=== PATIENT | female | born 1995 | race Caucasian/White ===

== ENCOUNTER 2018-03-02 10:47 | Emergency (ER) | payer OTHER ==
[2018-03-02] MEDS ORDERED: NS 1,000 ML IV ONE (11:25)
--- NOTE | 2018-03-02 11:27 | EDPHY ---
H & P Stated Complaint: Nausea, vomiting, sore throat, general fatigue for days. Time Seen by Provider: 03/02/18 11:11 HPI/ROS: CHIEF COMPLAINT: Nausea, vomiting, headache, myalgias and fatigue HISTORY OF PRESENT ILLNESS: The patient has had a newly one-week history of nausea, vomiting, headache, myalgias and fatigue. She also is complaining of a sore throat. She was diagnosed with possible strep pharyngitis on Monday of this week and has been on amoxicillin. Since starting the antibiotic she is developed symptoms of dyspepsia, increased abdominal pain and bloating and vomiting. The patient denies any productive cough. She continues to have a mild frontal headache. She denies any acute numbness or weakness. The patient is currently being evaluated for vague symptoms of orthostasis. She has been evaluated by Neurology and Cardiology without an obvious diagnosis to date. REVIEW OF SYSTEMS: A comprehensive 10 point review of systems is otherwise negative aside from elements mentioned in the history of present illness. - Personal History LMP (Females 10-55): 8-14 Days Ago Current Tetanus Diphtheria and Acellular Pertussis (TDAP): Yes - Medical/Surgical History Hx Asthma: No Hx Chronic Respiratory Disease: Yes Hx Diabetes: No Hx Cardiac Disease: No Hx Renal Disease: No Hx Cirrhosis: No Hx Alcoholism: No Hx HIV/AIDS: No Hx Splenectomy or Spleen Trauma: No Other PMH: Bronchitis. - Social History Smoking Status: Never smoked Constitutional: Initial Vital Signs Temperature (C) 36.5 C 03/02/18 10:48 Heart Rate 113 H 03/02/18 10:48 Respiratory Rate 18 03/02/18 10:48 Blood Pressure 136/76 H 03/02/18 10:48 O2 Sat (%) 96 03/02/18 10:48 O2 Delivery Mode Room Air Allergies/Adverse Reactions: amoxicillin Allergy (Verified 03/02/18 10:52) Home Medications: Medication Instructions Recorded Azithromycin 03/02/18 Ondansetron Odt [Zofran Odt] 4 mg PO Q4PRN PRN #20 tab 03/02/18 Medical Decision Making ED Course/Re-evaluation: The patient presents to the ED with fever, fatigue, malaise, sore throat lymphadenopathy. The patient is nontoxic and well-appearing. She has no obvious splenomegaly noted on exam. Workup in the emergency department was revealing for evidence of mononucleosis and a mild transaminitis. The patient was treated with IV fluids, Zofran and anti-inflammatories. At this point I do feel the patient can withhold her antibiotics as I do not feel that this is strep throat. The patient has been cautioned not to participate in any dangerous activity given her risk of splenic injury. The patient will be given a prescription for Zofran. She is advised to have her liver function rechecked in approximately a week. The patient is instructed to return to the ED for markedly worsening symptoms, intractable vomiting, fever, pain or acute abdominal pain. Differential Diagnosis: Differential diagnosis considered includes viral syndrome, dehydration, metabolic abnormality - Data Points Laboratory Results: Laboratory Results 03/02/18 11:38 03/02/18 11:38 03/02/18 03/02/18 03/02/18 11:38 11:38 11:38 WBC 10.85 10^3/uL H 10^3/uL (3.80-9.50) RBC 5.01 10^6/uL 10^6/uL (4.18-5.33) Hgb 14.6 g/dL g/dL (12.6-16.3) Hct 41.6 % % (38.0-47.0) MCV 83.0 fL fL (81.5-99.8) MCH 29.1 pg pg (27.9-34.1) MCHC 35.1 g/dL g/dL (32.4-36.7) RDW 12.7 % % (11.5-15.2) Plt Count 145 10^3/uL L 10^3/uL (150-400) MPV 9.2 fL fL (8.7-11.7) Neut % (Auto) Not Reported Lymph % (Auto) Not Reported Kimble % (Auto) Not Reported Eos % (Auto) Not Reported Baso % (Auto) Not Reported Nucleat RBC Rel Count Not Reported Absolute Neuts (auto) Not Reported Absolute Lymphs (auto) Not Reported Absolute Monos (auto) Not Reported Absolute Eos (auto) Not Reported Absolute Basos (auto) Not Reported Absolute Nucleated RBC Not Reported Immature Gran % Not Reported Seg Neutrophils % 29.3 % % Band Neutrophils % 1.0 % % Lymphocytes % 58.6 % % Monocytes % 8.1 % % Eosinophils % 0.0 % % Basophils % 2.0 % % Metamyelocytes % 0.0 % % Myelocytes % 1.0 % % Promyelocytes % 0.0 % % Blast Cells % 0.0 % % Immature Gran # Not Reported Absolute Seg Neuts 3.18 10^3/uL 10^3/uL (1.70-6.50) Absolute Band Neuts 0.11 10^3/uL 10^3/uL (0.00-0.70) Absolute Lymphocytes 6.36 10^3/uL H 10^3/uL (1.00-3.00) Absolute Monocytes 0.88 10^3/uL H 10^3/uL (0.30-0.80) Absolute Eosinophils 0.00 10^3/uL L 10^3/uL (0.03-0.40) Absolute Basophils 0.22 10^3/uL H 10^3/uL (0.02-0.10) Absolute Metamyelocyte 0.00 10^3/mL 10^3/mL (0.00-0.00) Absolute Myelocytes 0.11 10^3/mL H 10^3/mL (0.00-0.00) Absolute Promyelocytes 0.00 10^3/uL 10^3/uL (0.00-0.00) Absolute Plasma Cells 0.00 10^3/uL 10^3/uL (0.00-0.00) Nucleated RBCs 1.0 /100 WBC H /100 WBC (0-0) Atypical Lymphocytes 3+ H Absolute Blast Cells 0.00 10^3/uL 10^3/uL (0.00-0.00) Plasma Cells % 0.0 % % Platelet Estimate DECREASED L (ADEQ) Smear Review By Pending Sodium 136 mEq/L mEq/L (135-145) Potassium 3.6 mEq/L mEq/L (3.3-5.0) Chloride 100 mEq/L mEq/L (97-110) Carbon Dioxide 26 mEq/l mEq/l (22-31) Anion Gap 10 mEq/L mEq/L (6-14) BUN 7 mg/dL mg/dL (7-23) Creatinine 0.7 mg/dL mg/dL (0.6-1.0) Estimated GFR > 60 Glucose 104 mg/dL H mg/dL (70-100) Calcium 9.5 mg/dL mg/dL (8.5-10.4) Total Bilirubin 2.6 mg/dL H mg/dL (0.1-1.4) Conjugated Bilirubin 2.0 mg/dL H mg/dL (0.0-0.5) Unconjugated Bilirubin 0.6 mg/dL mg/dL (0.0-1.1) AST 356 IU/L H IU/L (14-46) ALT 335 IU/L H IU/L (9-52) Alkaline Phosphatase 223 IU/L H IU/L (38-126) Total Protein 8.1 g/dL g/dL (6.3-8.2) Albumin 4.2 g/dL g/dL (3.5-5.0) Lipase 130 IU/L IU/L (23-300) Beta HCG, Qual NEGATIVE Monoscreen POSITIVE H (NEGATIVE) Medications Given: Discontinued Medications Sodium Chloride (Ns) 1,000 mls @ 0 mls/hr IV EDNOW ONE; Wide Open PRN Reason: Protocol Stop: 03/02/18 11:26 Last Admin: 03/02/18 11:42 Dose: 1,000 mls Ondansetron HCl (Zofran) 4 mg IVP EDNOW ONE Stop: 03/02/18 11:46 Last Admin: 03/02/18 11:47 Dose: 4 mg Departure - Departure Disposition: Home, Routine, Self-Care Clinical Impression: Vomiting, Mononucleosis Condition: Good Instructions: Mononucleosis (ED) Additional Instructions: 1. Take Ibuprofen or Motrin 600 mg by mouth three times a day. 2. Zofran as needed for nausea 3. Please stop taking her antibiotics 4. Please return to the ED for any markedly worsening symptoms, severe abdominal pain or other concerns. 5. Please follow up with your primary care provider and have your liver function tests rechecked in approximately week. They are slightly elevated today from your mononucleosis. 6. No dangerous activities such as contact sports or skiing for the next 3 months. Referrals: MIA HOGAN [Other] - As per Instructions Prescriptions: Ondansetron Odt [Zofran Odt] 4 mg PO Q4PRN PRN #20 tab PRN Reason: For Nausea
[2018-03-02] MEDS ORDERED: ONDANSETRON 4 MG/2 ML VIAL IVP ONE (11:45)
[2018-03-02] MEDS ORDERED: ONDANSETRON 4 MG/2 ML VIAL ONE (11:46)
[2018-03-02 11:52] LABS: PLATELET COUNT 145 10^3/uL (150-400)
[2018-03-02 13:52] VITALS: BP 110/78
== END 2018-03-02 13:52 | disposition home or self-care (01) ==
LOC: EDSEX 10:47 → MERGE 10:47
DX: R11.10 Vomiting, unspecified (principal); B27.99 Infectious mononucleosis, unspecified with other complication; E86.9 Volume depletion, unspecified
CPT/HCPCS: 96374; J2405